=== PATIENT | male | born 1975 | race Caucasian/White ===

== ENCOUNTER → 2016-11-10 | Outpatient (CLI) | payer BC, OTHER ==
[~2016-11-10] MED LIST: ADVIN25/60 INH; CETI10TA84 PO; FLUT0.15 NAE; MONT1TAB3 PO; NXM/40 PO; VNTHFA/IN INH
== END | disposition home or self-care (01) ==
LOC: C.RDSM 08:38
PROVIDERS: ATTEND Physical Medicine & Rehabilitation Sports Medicine
DX: M25.511 Pain in right shoulder (principal)

== ENCOUNTER → 2017-04-21 | Day surgery (SDC) | payer BC ==
[2017-03-27 11:13] VITALS: Ht 180.3 cm; Wt 79.5 kg
[~2017-04-21] VITALS: Ht 180.3 cm; Wt 79.5 kg
[~2017-04-21] MED LIST changes: +ATROPINE SULFATE 0.1 MG/ML 5ML SYR IV PRN; +CEFAZOLIN 2000MG IV PUSH 10 ML IV SCH; +DEXAMETHASONE SOD INJ 4 MG/ML VIAL ONE; +EpHEDrine SULFATE INJ 50 MG/ML AMP IV PRN; +FENTANYL CITRATE INJ 50 MCG/1 ML 2 ML VIAL IV PRN; +FENTANYL CITRATE INJ 50 MCG/1 ML 2 ML VIAL ONE; +LACTATED RINGER'S 1000ML 1,000 ML IV SCH; +LEVOFLOXACIN 500 MG TAB ONE; +LEVOFLOXACIN 500 MG TAB PO ONE; +LIDOCAINE HCL 2% 2 ML VIAL (20MG/ML) ONE; +MIDAZOLAM HCL 1 MG/ML 2ML VIAL ONE; +ONDANSETRON INJ 2 MG/ML 2 ML VIAL IV PRN; +ONDANSETRON INJ 2 MG/ML 2 ML VIAL ONE; +OXYCODONE/ACETAMINOPHEN 5-325 TAB PO PRN; +PROPOFOL IV EMULSION 10 MG/ML 20 ML VIAL IV ONE; +ROPIVACAINE 0.5% 5 MG/ML 30 ML VIAL ONE; +SODIUM CHLORIDE 0.9% 1000ML 1,000 ML IV SCH
--- NOTE | 2017-04-21 10:22 | History & Physical Bridge Note ---
H&P Re-Evaluation Bridge Note: I have examined the patient, reviewed the History & Physical and in the interval since the performance of the History & Physical I have noted the following changes of clinical significance: consent obtained and reviewed.No changes noted
--- NOTE | 2017-04-21 10:24 | Discharge Instructions ---
Discharge Instructions Date of Service Apr 21, 2017. Visit Reason for Visit: Right Shoulder Impingement With Humeral Deformity Discharge Discharge Diagnosis / Problem: same Discharge Goals Goal(s): Decrease discomfort, Improve function Medications Stopped Medications Name(s): na Restart Stopped Medication(s): use all scripts as directed Activity Recommendations Activity Limitations: as noted below Lifting Limitations: until after follow-up appointment Exercise/Sports Limitations: until after follow-up appointment May Resume Sexual Activity: when tolerated Shower/Bathe: keep incision dry Anesthesia . Post Anesthesia Instructions: If you have had General Anesthesia or IV Sedation: * Do not drive today. * Resume driving when surgeon permits. * Do not make important decisions or sign legal documents today. * Call surgeon for: 1. Temperature elevations greater than 101 degrees F. 2. Uncontrollable pain. 3. Excessive bleeding. 4. Persistent nausea and vomiting. 5. Medication intolerance (nausea, vomiting or rash). * For nausea and vomiting use only clear liquids such as: tea, soda, bouillon until nausea subsides, then gradually increase diet as tolerated. * If you have any concerns or questions, call your surgeon's office. If physician is unavailable and it is an emergency, call 911 or go to the nearest emergency room. . Instructions / Follow-Up Instructions / Follow-Up The following are instructions to follow after "Shoulder Surgery" including, Acromioplasty, Rotator Cuff Repair and Instability Surgery ACTIVITY RECOMMENDATIONS: * Minimize activity after surgery. * No excessive walking, jogging, sports or laboring. * Return to activity is individualized depending on the patient and type of surgery. * Driving is not permitted until at least your first post operative visit. Please ask your doctor when it is safe to resume driving. * Expect increased discomfort with increased activity. Continue to ice the shoulder as needed. SCHOOL/WORK RECOMMENDATIONS: * You may return to sedentary work or school when you are feeling more comfortable. This is usually 3-7 days after surgery. MEDICATIONS: * You will have a prescription for pain medication and an anti-inflammatory medication after surgery. * Use the pain medication for severe pain and the anti-inflammatory for less severe pain. Once the pain medication has run out, try to use the anti-inflammatory medication. If this is not effective, contact the office for assistance. * The pain medication may cause nausea, constipation and drowsiness. You should see how they affect you before driving or similar activity. * The anti-inflammatory medication may cause stomach upset and bleeding. If this occurs let your doctor know immediately . * Take a stool softener like Colace or a laxative like Senokot to prevent constipation. DIET: * Resume previous diet. SPECIAL CARE: ICE: You have the option of an ice cooler, gel packs or ice bags. * If you have an ice cooler, refer to the instructions for that device. The ice cooler may be used continuously. * If you do not have an ice cooler, you will need to use ice bags or gel packs. Do not apply ice directly to the skin. Use a thin dressing or eun shirt between the skin and ice bag. Apply ice for 20-30 minutes and repeat every 2-4 hours. This is especially important for the first 7-10 days after surgery. Once the pain improves, use ice as needed. ELEVATION: * You may be more comfortable sleeping in an upright position. Use the sling to elevate your arm. DRESSING: * Your dressing will be changed at your first therapy appointment approximately 4-5 days after surgery. Band-aids, tape strips or gauze may be applied. You may then change your dressing daily. * Reapply dressing followed by the EBIce cooling pad (if chosen) and then the sling. * Always wash your hands prior to touching the incision area. * Once the stitches are removed, you may leave the wound open to air or cover with gauze. * Expect some bloody drainage for the first few days after surgery. * Leave the tape strips, if present, in place for 5-7 days. * Band-aids and gauze may be changed daily. * There may be a gauze pad in your armpit area. This can be changed daily or replaced by a dry washcloth. SLING/BRACE: * You will need to use a sling or brace after surgery. The length of time the sling is used is dependent upon the type of surgery performed. * Arthroscopic Acromioplasty requires use of the sling for 2-4 weeks for comfort. * Labral procedures and Rotator Cuff Repairs require use of the sling for a longer period of time. Please check with your doctor prior to discontinuing the sling. BATHING: * You may shower or sponge-bathe immediately after surgery. The post operative shoulder dressing is mostly water-tight. You may shower right over this dressing, but be reasonably careful not to get the gauze or incision wet. * Once the dressing has been changed on the fourth or fifth day after surgery, you may shower and get the incision wet. * Wash with regular soap and water. * Do not bathe (submerge the incision), soak, swim or use a hot tub until the incision is completely healed over with normal skin and the doctor has given the OK to proceed. * There is no need to apply any ointments, powders or salves to your incision. * Do not apply alcohol or hydrogen peroxide directly to the incision. * Diluted peroxide (50:50 mixture with sterile saline) may be used to clean dried blood from around the incision area. THERAPY: * You will begin therapy four or five days after surgery. * Organized therapy with the therapist is important for the first 2-4 months after surgery depending on the type of procedure. During that time you will attend therapy 1-3 times per week. * You will also need to do daily exercises for range of motion and strength as instructed. * Patients who have a Capsular Shift Procedure will need to abide by temporary range of motion limitations. * Patients having Rotator Cuff Surgery are not allowed to actively lift their arms until 4-6 weeks after surgery. * Please check with your doctor regarding appropriate motion restrictions. FOLLOW UP VISIT: * If not already scheduled, please call the office at to schedule a follow-up appointment for 10 days after surgery and monthly thereafter. Diet Recommendations Recommended Home Diet: resume previous diet Procedures Procedures Performed: see op note Pending Studies Studies pending at discharge: no Medical Emergencies . Who to Call and When: Medical Emergencies: If at any time you feel your situation is an emergency, please call 911 immediately. . Non-Emergent Contact Non-Emergency issues call your: Specialist Call Non-Emergent contact if: you have a fever, temperature is above 101.5, wound has increased drainage, wound has increased redness, wound has increased pain . . "Provider Documentation" section prepared by Brandon Parks. .
--- NOTE | 2017-04-21 12:38 | [facility] Post Operative Brief Note ---
Immediate Operative Summary Operative Date Apr 21, 2017. Pre-Operative Diagnosis Right Shoulder Impingement with Humeral Deformity Post-Operative Diagnosis Same Procedure(s) Performed Right Shoulder Open Osteotomy Right Humerus With Rotator Cuff Repair, Subacromial Decompression, Distal Clavicle Excision Surgeon Dr. Rex Parks Field Cane Scale Clerk Surgeon(s) Pricilla Schmidt PA-C Estimated Blood Loss 25 CC Findings see op note Fluids (cc crystalloids) 1000cc Specimens None Drains none Anesthesia LMA/block Complication(s) None Disposition Recovery Room / PACU
[2017-04-21 13:31] VITALS: TEMP 36.4
--- NOTE | 2017-04-21 13:31 | OPERATIVE REPORT ---
DATE OF OPERATION: 04/21/2017 PREOPERATIVE DIAGNOSIS: Post proximal humerus fracture deformity with rotator cuff impingement. POSTOPERATIVE DIAGNOSIS: Same. OPERATION PERFORMED: 1. Arthrotomy, right shoulder with open osteotomy correction of deformity of the right proximal humerus with rotator cuff repair SpeedBridge technique. 2. Excision distal clavicle. 3. Subacromial decompression. SURGEON: Dr. Parks. FISH FARM LABORER: German Cullen PA-C. No resident or fellow available. PERIOPERATIVE SITUATION: Medically cleared male with intractable shoulder symptoms with physical exam, x-ray and MRI scan consistent with post proximal humerus fracture deformity and secondary impingement from tuberosity malunion. OPERATION AND FINDINGS: OPERATION: The patient appropriately identified, site verified, consent verified, 2 grams of Ancef confirmed as being given. The right upper extremity was examined revealing a slight limitation of external and internal rotation, forward flexion near full extension, has abduction to about 95-100 degrees. He was then carefully placed in a beach chair position and right upper extremity prepped and draped in usual routine fashion. Prior to prepping fluoroscopy was used to identify the most prominent part of the tuberosity. This was in neutral position. An oblique incision was then made based over the shoulder. Full thickness flaps raised, deltotrapezial interval opened, periosteal flaps raised and the distal clavicle about 3/4 cm area excised. The undersurface of the acromion was flattened and exuberant bursectomy was performed. The deformity was visible through the tendon. This was then identified with needle localization fluoroscopy and then the tendon then subperiosteally lifted off the deformity and all the bone removed. This was verified by fluoroscopy. Using SpeedBridge technique, 2 anchors were placed medially and 2 laterally and then the tendon repaired down to bone and raw surface. An excellent repair was obtained. The arm could be placed through passive range of motion with no problems. The wound was irrigated multiple times during the procedure and then the procedure then terminated. All instruments and fluid removed. The deltotrapezial interval repaired with 0 Ethibond through the bone, #1 Vicryl and this achieved excellent repair. Two sutures were placed to bone with the Ethibond. The wound was irrigated one final time and then closed with #2 plain and running subcuticular 2-0 Prolene. A dressing applied. The patient transferred to recovery room in satisfactory condition having tolerated the procedure well. Estimated blood loss 25 mL. Crystalloid was roughly a liter. No DVT prophylaxis required. SUMMARY OF IMPLANTS: SpeedBridge sutures and 4 anchors all 475. I attest to the content of the Intraoperative Record and any orders documented therein. Any exception s are noted below.
--- NOTE | 2017-04-21 13:32 | [facility] Operative Report ---
Operative Report Operative Date Apr 21, 2017. Pre-Operative Diagnosis Right Shoulder Impingement with Humeral Deformity Post-Operative Diagnosis Same Procedure(s) Performed Right Shoulder Open Osteotomy Right Humerus With Rotator Cuff Repair, Subacromial Decompression, Distal Clavicle Excision Surgeon Dr. Rex Parks Java Engineer Surgeon(s) Pricilla Schmidt PA-C Estimated Blood Loss 25 CC Findings Right shoulder impingement, proximal humeral deformity, and rotator cuff tear Fluids (cc crystalloids) 1000cc Specimens None Drains none Complication(s) None Disposition Recovery Room / PACU Indications This 41-year-old white male presented the office with complaints of intractable right shoulder pain. He had been seen elsewhere and received surgical intervention without improvement in his symptoms. He had tried conservative care measures as well. Patient elected to proceed with surgical intervention after being educated about potential risks and outcomes. Preoperative imaging was obtained. Description of Procedure Patient was administered a regional block and then taken to the operating room where he was given general anesthesia. He was prepped and draped in usual sterile fashion. Please see Dr. Parks's operative report for specifics of the procedure. I was present for the entire case from initial patient positioning through final wound closure. Assistance was provided in patient positioning, tissue traction, hemostasis, hardware placement, and final wound closure. Patient was taken to the recovery room in satisfactory condition. I attest to the content of the Intraoperative Record and any orders documented therein. Any exceptions are noted below.
--- NOTE | 2017-04-21 13:35 | Anesthesia Progress Nt - [facility] ---
Anesthesia Post Op Note Date & Time Apr 21, 2017 at 13:34 Vital Signs Pain Intensity: 0 Vital Signs Past 12 Hours Date Time Temp Pulse Resp B/P (MAP) Pulse Ox O2 Delivery O2 Flow Rate FiO2 04/21/17 13:20 36.4 80 16 130/80 96 Room Air 04/21/17 13:16 139/97 04/21/17 13:13 87 25 98 04/21/17 13:13 88 25 04/21/17 13:12 82 22 04/21/17 13:12 83 22 130/96 100 04/21/17 13:12 83 22 130/96 100 04/21/17 13:12 82 22 04/21/17 13:08 123/91 04/21/17 13:08 123/91 04/21/17 13:07 80 17 04/21/17 13:07 80 17 04/21/17 13:07 79 17 96 04/21/17 13:07 79 17 96 04/21/17 13:02 83 17 100 04/21/17 13:02 83 17 100 04/21/17 13:02 83 17 04/21/17 13:02 83 17 04/21/17 13:01 142/86 04/21/17 13:01 142/86 04/21/17 12:59 120/87 04/21/17 12:59 120/87 04/21/17 12:57 82 21 149/132 88 04/21/17 12:57 83 21 04/21/17 12:57 83 21 04/21/17 12:57 82 21 149/132 88 04/21/17 12:52 76 18 04/21/17 12:52 77 18 100 04/21/17 12:52 77 18 100 04/21/17 12:52 76 18 04/21/17 12:51 75 17 04/21/17 12:51 76 17 119/81 04/21/17 12:47 118/86 04/21/17 12:46 79 15 04/21/17 12:46 81 15 89 04/21/17 12:46 36.0 81 16 118/86 97 Mask 8 04/21/17 10:59 0 04/21/17 10:56 130/89 04/21/17 10:54 87 04/21/17 10:54 89 8 97 04/21/17 10:49 92 04/21/17 10:49 89 6 153/106 98 04/21/17 10:48 86 16 153/106 (122) 98 Mask 6 04/21/17 10:30 36.4 88 22 138/89 (105) 95 Room Air Notes Mental Status: alert / awake / arousable, participated in evaluation Pt Amnestic to Procedure: Yes Nausea / Vomiting: adequately controlled Pain: adequately controlled Airway Patency, RR, SpO2: stable & adequate BP & HR: stable & adequate Hydration State: stable & adequate Anesthetic Complications: no major complications apparent
[2017-04-21 14:05] VITALS: BP 129/82; PULSE 86; O2SAT 95
== END | disposition home or self-care (01) ==
LOC: X.SURG 09:45
PROVIDERS: ATTEND Physical Medicine & Rehabilitation Sports Medicine
DX: M21.821 Other specified acquired deformities of right upper arm (principal); M75.41 Impingement syndrome of right shoulder; K21.9 Gastro-esophageal reflux disease without esophagitis; J45.909 Unspecified asthma, uncomplicated; Z79.899 Other long term (current) drug therapy

== ENCOUNTER → 2017-06-01 | Outpatient (CLI) | payer BC ==
[~2017-06-01] MED LIST changes: -ATROPINE SULFATE 0.1 MG/ML 5ML SYR IV PRN; -CEFAZOLIN 2000MG IV PUSH 10 ML IV SCH; -DEXAMETHASONE SOD INJ 4 MG/ML VIAL ONE; -EpHEDrine SULFATE INJ 50 MG/ML AMP IV PRN; -FENTANYL CITRATE INJ 50 MCG/1 ML 2 ML VIAL IV PRN; -FENTANYL CITRATE INJ 50 MCG/1 ML 2 ML VIAL ONE; -LACTATED RINGER'S 1000ML 1,000 ML IV SCH; -LEVOFLOXACIN 500 MG TAB ONE; -LEVOFLOXACIN 500 MG TAB PO ONE; -LIDOCAINE HCL 2% 2 ML VIAL (20MG/ML) ONE; -MIDAZOLAM HCL 1 MG/ML 2ML VIAL ONE; -ONDANSETRON INJ 2 MG/ML 2 ML VIAL IV PRN; -ONDANSETRON INJ 2 MG/ML 2 ML VIAL ONE; -OXYCODONE/ACETAMINOPHEN 5-325 TAB PO PRN; -PROPOFOL IV EMULSION 10 MG/ML 20 ML VIAL IV ONE; -ROPIVACAINE 0.5% 5 MG/ML 30 ML VIAL ONE; -SODIUM CHLORIDE 0.9% 1000ML 1,000 ML IV SCH
== END | disposition home or self-care (01) ==
LOC: C.RDSM 11:12
PROVIDERS: ATTEND Physical Medicine & Rehabilitation Sports Medicine
DX: M75.41 Impingement syndrome of right shoulder (principal)

== ENCOUNTER → 2017-08-24 | Outpatient (CLI) | payer BC | END | disposition home or self-care (01) | LOC: C.RDSM 13:50 | PROVIDERS: ATTEND Physical Medicine & Rehabilitation Sports Medicine | DX: S42.201A Unspecified fracture of upper end of right humerus, initial encounter for closed fracture (principal); X58.XXXA Exposure to other specified factors, initial encounter; M75.41 Impingement syndrome of right shoulder ==

== ENCOUNTER 2020-07-04 05:01 | Observation (INO) ==
--- NOTE | 2020-06-05 11:24 | PAT Medication Instructions ---
Medication Instructions Date of Service June 05, 2020 Home Medications albuterol sulfate 2 puff INHALATION 6XD PRN cetirizine 10 mg PO QAM esomeprazole magnesium [Nexium] 40 mg PO QAM fluticasone propion-salmeterol [Advair Diskus] 1 inh INHALATION BID ibuprofen 600 mg PO Q6H PRN montelukast 10 mg PO QAM ASK your surgeon for instructions ibuprofen 600 mg PO Q6H PRN DO NOT take the morning of surgery cetirizine 10 mg PO QAM montelukast 10 mg PO QAM Take morning of surgery With a small sip of water, OTHERWISE NOTHING TO EAT OR DRINK AFTER MIDNIGHT: albuterol sulfate 2 puff INHALATION 6XD PRN (use if needed; please bring with you to hospital day of surgery if possible) esomeprazole magnesium [Nexium] 40 mg PO QAM fluticasone propion-salmeterol [Advair Diskus] 1 inh INHALATION BID Take evening before surgery albuterol sulfate 2 puff INHALATION 6XD PRN (if needed) fluticasone propion-salmeterol [Advair Diskus] 1 inh INHALATION BID Other Notes If you have any questions please call us at [phone] or [phone] or [phone] or [phone]
--- NOTE | 2020-06-11 13:36 | Anesthesiology Consultation ---
Date of Service June 11, 2020 Assessment & Plan (1) Encounter for pre-operative examination: Chart Review Chart Review: Acceptable Risk for Surgery (pending preop Covid testing ) and Patient NOT seen in Pre Admission Testing Per nursing assessment 05/16/20, patient resides in [facility]. Works in [employer] at [employer]. Pt does have occ contact with prisoners- ill prisoners to get rapid tested. Wears mask and socially distances. No current Covid related symptoms. Pt scheduled for preop Covid testing 06/27/19 with PCP (pt aware that Covid test needs to be PCR send out test)= will await results. 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 Pt does wear PPE while working and in public. Will leave to anesthesiologist discretion AM of surgery if further PPE and/or surgery time needed. History Surgery Operation Date: 07/04/20 07:15 Proposed Procedures p Left Total Hip Arthroplasty with Dual Mobility Cup - Brandon Parks MD Height/Weight Height: 5 ft 11 in Weight: 86.183 kg Allergies Allergy/AdvReac Type Severity Reaction Status Date / Time latex Allergy Mild EYES ITCHY Verified 05/16/20 14:12 Penicillins Allergy Unknown TOLD A Verified 05/16/20 14:11 CHILD/UNKNOWN PEANUTS Allergy Severe ANAPHYLAXIS Uncoded 05/16/20 14:11 Medications Home Medications Medication Instructions Recorded Confirmed Last Taken albuterol sulfate 2 puff INHALATION 6XD PRN 05/16/20 05/16/20 Unknown cetirizine 10 mg PO QAM 05/16/20 05/16/20 Unknown esomeprazole magnesium [Nexium] 40 mg PO QAM 05/16/20 05/16/20 Unknown fluticasone propion-salmeterol 1 inh INHALATION BID 05/16/20 05/16/20 Unknown [Advair Diskus] ibuprofen 600 mg PO Q6H PRN 05/16/20 05/16/20 Unknown montelukast 10 mg PO QAM 05/16/20 05/16/20 Unknown Past Medical History Medical History Asthma AVN of femur LEFT GERD (gastroesophageal reflux disease) Migraine HX Past Family History Family History Father Family history of diabetes mellitus Grandfather (Paternal) Family history of esophageal cancer Past Surgical History Surgical History History of esophagogastroduodenoscopy (EGD) WITH DILATION History of repair of rotator cuff RIGHT-2017 Social History Smoking Status: Light tobacco smoker tobacco type: cigars Smoking cigarettes per day: OCC CIGAR Do You Dip or Chew Tobacco: Yes (1 CAN PER WEEK) Hx Alcohol Use: Yes Alcohol type: beer alcohol intake frequency: a few times a week Hx Substance Use: No Testing Laboratory Results Laboratory Tests 06/07/20 06/07/20 06/07/20 16:52 16:52 16:52 WBC 6.97 Hgb 16.6 Hct 48.6 Plt Count 250 PT 10.1 INR 1.0 APTT 28.0 Sodium 139 Potassium 3.7 Chloride 107 Carbon Dioxide 25 BUN 8 Creatinine 1.10 Glucose 88 06/07/20= T&S: O positive, antibody negative Chest X-Ray Date: 06/07/20 Findings: + NAD
--- NOTE | 2020-06-17 19:11 | History & Physical Report ---
Date of Service June 17, 2020 Assessment & Plan (1) Avascular necrosis of bone of left hip: Preoperative lab work, EKG, and chest x-ray have been ordered. Medical clearance was requested from his PCP, Dr. Hylton. Preoperative COVID-19 testing will be obtained one week prior to surgery. He is aware of the risks of COVID-19 associated with surgery. He is currently asymptomatic of any COVID-19 symptoms. PDMP was checked, and there are no concerning findings. 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 The patient already has access to a walker. Post op prescriptions will be provided at discharge from the hospital. Though he may have a penicillin allergy, he has taken Keflex before without issue. History of Present Illness Chief Complaint: Left hip pain Primary Care Provider: NO PCP This 44-year-old white male presents today for left hip pain for over 2 years. He is scheduled to undergo a left total hip arthroplasty with dual mobility cup on 07/04/2020. No specific injury. Insidious onset. He was found to have AVN on imaging. Symptoms were initially controlled with intra-articular cortisone injections and activity modification. He states they are no longer helping, and he is now having constant pain. Worse with activity. It is affecting his ADLs. Worse with weightbearing. It occasional interrupts his sleep. He has a history of steroid use for asthma. His last radiographic imaging was March 2020. Denies any numbness or tingling. Allergies Allergy/AdvReac Type Severity Reaction Status Date / Time latex Allergy Mild EYES ITCHY Verified 05/16/20 14:12 Penicillins Allergy Unknown TOLD A Verified 05/16/20 14:11 CHILD/UNKNOWN PEANUTS Allergy Severe ANAPHYLAXIS Uncoded 05/16/20 14:11 Home Medications Medication Instructions Recorded Confirmed Type albuterol sulfate 2 puff INHALATION 6XD PRN 05/16/20 05/16/20 History cetirizine 10 mg PO QAM 05/16/20 05/16/20 History esomeprazole magnesium [Nexium] 40 mg PO QAM 05/16/20 05/16/20 History fluticasone propion-salmeterol 1 inh INHALATION BID 05/16/20 05/16/20 History [Advair Diskus] ibuprofen 600 mg PO Q6H PRN 05/16/20 05/16/20 History montelukast 10 mg PO QAM 05/16/20 05/16/20 History Past Med/Surg History Medical History Asthma AVN of femur LEFT GERD (gastroesophageal reflux disease) Migraine HX Surgical History History of esophagogastroduodenoscopy (EGD) WITH DILATION History of repair of rotator cuff RIGHT-2017 Family History Father Family history of diabetes mellitus Grandfather (Paternal) Family history of esophageal cancer Social History (Updated 06/17/20 @ 19:05 by German Cullen PA-C) Smoking Status: Light tobacco smoker Cigarettes Per Day: OCC CIGAR; Second Hand Exposure: Yes (PARENTS SMOKED); Hx Alcohol Use: Yes Alcohol type: beer Hx Substance Use: No Preferred Language: Malaysian Communication Ability: Effective Inspector Salvage Required: No Beliefs That Will Affect Care: None Current Living Situation: Spouse current occupational status: employed current occupation: immigration guard Feels Safe at Home: Yes Assistive Devices: Glasses Review of Systems Review of Systems: All systems reviewed & are unremarkable except as noted in HPI & below A total of 10 systems were reviewed. Physical Exam Physical Exam: Vitals: Height 179.5 cm, weight 91 kilograms, BP 150/90, pulse 103, temperature 36.7 oral. O2 sat 97% on room air. General: Well-developed, well-nourished middle-aged white male in no acute distress. Sitting in a chair. Alert and oriented. Skin: Warm and dry with good turgor. No rashes or lesions. No ecchymosis or erythema. HEENT: Normocephalic, atraumatic. Eyes: PERRLA, EOMI. Nares and oropharynx exams deferred due to COVID precautions. By history, he has poor dentition. Heart: RRR, no MGR. Lungs: Clear to auscultation bilaterally, no crackles, rhonchi or wheezing, good air movement. Abdomen: Bowel sounds present x4, soft, nontender. No organomegaly. No masses. Musculoskeletal: Left hip evaluation shows no obvious asymmetry or deformity. There is hip flexion to around 100 degrees before onset of anterior discomfort. External rotation to 35 degrees with the hip flexed at 90. Internal rotation is significantly limited to around 10 degrees before onset of pain. No pain with palpation over his IT band or greater trochanter. There is also discomfort with palpation over the left SI joint. He ambulates with a slightly antalgic gait. Neurologic: Gross sensation is intact across the lower extremities by soft touch. Peripheral pulses are 2+. Results & Data Results & Data ([facility]) Diagnostic Findings Radiographic imaging previously obtained shows minor osteophyte formation. AVN with slight collapse is present.
[2020-07-04] MEDS ORDERED: LR 60ML/HR IV SCH (06:00)
[2020-07-04] MEDS ORDERED: TRANEXAMIC ACID 1,000 MG **IV Pre-op IV SCH (06:00)
[2020-07-04] MEDS ORDERED: ceFAZolin 2000MG 2,000 MG/15 ML SYR IV SCH (06:00)
[2020-07-04] MEDS ORDERED: ROPIVACAINE 0.5% HCL/PF 150 MG, BUPIVACAINE 0.75% MPF 20 ML, EPINEPHrine 0.15 MG, Ketor... INFIL SCH (06:00)
[2020-07-04] MEDS ORDERED: LR 500ML BOLUS, THEN 15ML/HR IV SCH (06:00)
[2020-07-04] MEDS ORDERED: GLYCOPYRROLATE 0.2 MG/ML VIAL ONE (06:13)
[2020-07-04] MEDS ORDERED: ONDANSETRON INJ 2 MG/ML 2 ML VIAL ONE (06:13)
[2020-07-04] MEDS ORDERED: LIDOCAINE 2% 2 ML VIAL/AMP(20MG/ML) INFIL ONE (06:13)
[2020-07-04] MEDS ORDERED: PROPOFOL IV EMULSION 10 MG/ML 20 ML VIAL IV ONE ×4 (06:13→08:26)
[2020-07-04] MEDS ORDERED: DEXAMETHASONE SOD INJ 4 MG/ML VIAL ONE (06:13)
[2020-07-04] MEDS ORDERED: MIDAZOLAM HCL 1 MG/ML 2ML VIAL ONE (06:14)
[2020-07-04] MEDS ORDERED: KETAMINE 50 MG/5 ML SYRINGE ONE (06:14)
[2020-07-04] MEDS ORDERED: KETOROLAC 30 MG/ML VIAL ONE (06:14)
[2020-07-04] MEDS ORDERED: BUPIVACAINE 0.5 % 5 MG/1 ML PF 10ML VIAL ONE (06:28)
--- NOTE | 2020-07-04 06:33 | History & Physical Bridge Note ---
Date of Service July 04, 2020 History & Physical Bridge Note I have examined the patient, reviewed the History & Physical and in the interval since the performance of the History & Physical I have noted the following changes of clinical significance: consent obtained/site verified/covid screen negative.no changes noted
[2020-07-04] MEDS ORDERED: ORTHO JOINT ANESTHETIC ONE (06:43)
[2020-07-04] MEDS ORDERED: ePHEDrine sulfate 50 MG/ML AMP IV PRN (06:46)
[2020-07-04] MEDS ORDERED: ATROPINE SULFATE 0.1 MG/ML 10ML SYR IV PRN (06:46)
[2020-07-04] MEDS ORDERED: ONDANSETRON INJ 2 MG/ML 2 ML VIAL IV PRN ×2 (06:46→09:51)
[2020-07-04] MEDS ORDERED: fentaNYL citrate 100 MCG/2 ML VIAL IV PRN (06:46)
[2020-07-04] MEDS ORDERED: fentaNYL citrate 100 MCG/2 ML VIAL ONE (06:58)
--- NOTE | 2020-07-04 08:48 | Post Operative Brief Note ---
Immediate Post Op Note v1 Date of Surgery July 04, 2020 Pre & Post Diagnosis Operation Date: 07/04/20 07:00 Pre-Op Diagnosis: Avascular necrosis of bone of left hip Post-Op Diagnosis: Avascular necrosis of bone of left hip I identified the patient and participated in the time-out.: Yes Procedure Operation Date: 07/04/20 07:00 Actual Procedures p Left Total Hip Arthroplasty with Dual Mobility Cup - uncemented(Left) - Brandon Parks MD Surgeon Brandon Parks MD Scientific Artist garfield/cammie Estimated Blood Loss 175 Findings Consistent with Post-Op Diagnosis
--- NOTE | 2020-07-04 08:55 | Operative Report ---
Post Operative Report Pre & Post Diagnosis Operation Date: 07/04/20 07:00 Pre-Op Diagnosis: Avascular necrosis of bone of left hip Post-Op Diagnosis: Avascular necrosis of bone of left hip I identified the patient and participated in the time-out.: Yes Procedure Operation Date: 07/04/20 07:00 Actual Procedures p Left Total Hip Arthroplasty with Dual Mobility Cup - uncemented(Left) - Brandon Parks MD Surgeon MJ Parks MD Nuclear Weapons Specialist garfield/cammie MOLINA Estimated Blood Loss 175 Findings Consistent with Post-Op Diagnosis Specimens see operative report Drains none Complications none Disposition Accompanied Patient To Recovery: Yes Disposition: Recovery Room Indications This 45-year-old white male presented to the office with complaints of persisting left hip pain. He tried conservative care measures without improvement. Radiographic imaging found evidence of AVN. He elected to proceed with surgical intervention after being educated about potential risks and outcomes. Description of Procedure Patient was administered a spinal anesthetic and then taken to the operating room where he was given sedation. He was prepped and draped in the usual sterile fashion. Please see Dr. Parks's operative report for specifics of the procedure. I was present for the entire case from initial patient positioning through final wound closure. Assistance was provided in tissue retraction, hemostasis, trial implant placement, final implant placement, and final wound closure. Patient was taken to the recovery room in satisfactory condition. I attest to the content of the Intraoperative Record and any orders documented therein. Any exceptions are noted below.
--- NOTE | 2020-07-04 08:57 | Operative Report ---
Post Operative Report Pre & Post Diagnosis Operation Date: 07/04/20 07:00 Pre-Op Diagnosis: Avascular necrosis of bone of left hip Post-Op Diagnosis: Avascular necrosis of bone of left hip I identified the patient and participated in the time-out.: Yes Procedure Operation Date: 07/04/20 07:00 Actual Procedures p Left Total Hip Arthroplasty with Dual Mobility Cup - uncemented(Left) - Brandon Parks MD Surgeon Brandon Parks MD Applications Project Manager garfield/cammie MOLINA Estimated Blood Loss 175 Findings Consistent with Post-Op Diagnosis Specimens femoral head Anesthesia Type Spinal Complications none Disposition Accompanied Patient To Recovery: Yes Disposition: Recovery Room Description of Procedure As per Dr. Parks's note, I assisted in prepping and draping, instruments handling, certain parts of the procedure and wound closure. I attest to the content of the Intraoperative Record and any orders documented therein. Any exceptions are noted below.
--- NOTE | 2020-07-04 09:17 | Anesthesiology Progress Note ---
Date of Service July 04, 2020 Anesthesia Post Procedure Vital Signs Vital Signs: Temp Pulse Pulse Resp BP Pulse Ox 07/04/20 09:00 92 H 14 126/91 95 07/04/20 08:54 36.3 C L 95 H 17 122/88 95 07/04/20 05:27 36.6 C 94 H 16 135/102 H 95 Pain Intensity Left Hip: Pain Intensity: 2 Transfer of Care Handoff Completed per policy Notes Mental Status: alert / awake / arousable and participated in evaluation Nausea / Vomiting: adequately controlled Pain: adequately controlled Airway Patency, RR, SpO2: stable & adequate BP & HR: stable & adequate Hydration State: stable & adequate Neuraxial Anesthesia: was administered and sensory block is resolving Anesthetic Complications: no major complications apparent and Pt Satisfied with anesthetic care
--- NOTE | 2020-07-04 09:21 | XRay Report ---
SINGLE VIEW PELVIS CLINICAL HISTORY: Postoperative examination. FINDINGS: An AP portable view of the pelvis is compared to study dated 04/09/2020. A bipolar left hip arthroplasty is in near-anatomic alignment. 2 cortical lag screws transfix the acetabular cup. No ac theresa fracture is identified. There are expected postoperative changes overlying the left hip including skin clips, subcutaneous gas, and soft tissue swelling. The joint space of the right hip is normal. The sacroiliac joints are maintained. IMPRESSION: Expected postoperative findings status post left hip arthroplasty. No acute fracture is s een. ACT 112: Negative or not required by law. Electronically signed by: James Villar M.D. 07/04/2020 9:20 AM
[2020-07-04] MEDS ORDERED: ALBUTEROL HFA 8 GM INHALER INH PRN (09:51)
[2020-07-04] MEDS ORDERED: TAMSULOSIN HCL 0.4 MG CAP PO PRN (09:51)
[2020-07-04] MEDS ORDERED: MAGNESIUM HYDROXIDE SUSP 30 ML UDC PO PRN (09:51)
[2020-07-04] MEDS ORDERED: ALUMINUM/MAGNESIUM SUSP 30 ML UDC PO PRN (09:51)
[2020-07-04] MEDS ORDERED: HYDROmorphone INJ 0.5 MG/0.5 ML SYR IV PRN (09:51)
[2020-07-04] MEDS ORDERED: bisacodyL 10 MG SUPP PR PRN (09:51)
[2020-07-04] MEDS ORDERED: METOCLOPRAMIDE HCL INJ 5 MG/ML 2 ML VIAL IV PRN (09:51)
[2020-07-04] MEDS ORDERED: NALOXONE HCL 0.4 MG/1 ML VIAL/CARP IV PRN (09:51)
[2020-07-04] MEDS ORDERED: diphenhydrAMINE 50 MG/ML VIAL IV PRN (09:51)
--- NOTE | 2020-07-04 09:57 | Operative Report (OR) ---
DATE OF OPERATION: 07/04/2020 SURGEON: Brandon Parks MD. APPLIANCE SERVICE REPRESENTATIVE: Dr. Mcfadden. SECOND APPLIANCE SERVICE REPRESENTATIVE: German Cullen PA-C.. 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 OPERATION PERFORMED: Noncemented dual mobility left total hip replacement. PERIOPERATIVE SITUATION: Medically cleared male who had been followed for years with intractable hip pain. At this point in time, wants to proceed with surgical treatment. Feels like his life is miserable, cannot sleep, cannot do a lot of activities. He understands the risks and consequences including instability and the election for dual mobility cup to help minimize that risk. Also, understands risk of infection, leg length inequality etc. PROCEDURE: Noncemented left total hip replacement with dual mobility acetabular cup. SUMMARY OF IMPLANTS: Osseous titanium cementless screw of 6.5 x 20 and 6.5 x 25 dual mobility cup system bearing D acetabular liner, dual mobility bearing D, size cup is a 50, osseous titanium cementless used G7 compatible implants, multihole cup size 50 all by [employer]. The stem is a DePuy high offset Tri-Lock size 2. The head was a 28+5 ceramic Biolox delta head. It was +5 neck length. ESTIMATED BLOOD LOSS: Roughly 175 mL crystalloid per anesthesia. Bone pathology pending on resection. Grossly, the femoral head was collapsed. DESCRIPTION OF PROCEDURE: The patient was appropriately identified, site verified, consent verified. Antibiotics confirmed as being given. The left lower extremity was prepped and draped in usual routine fashion at the patient in the right lateral decubitus position, care taken to protect all and pad all prominences. Posterior approach tape was then made. It was slightly extended once we were trying to get the cup in. Full thickness flaps were raised. IT band split, gluteus sarah fascia split, retractor placed. Care taken to protect the sciatic nerve, it was palpated not explored. He was heavy muscle. Short external rotators were released. The capsule was then T'ed, the hip was then dislocated. The ligament of teres was quite heavy. Femoral neck was then resected roughly leaving a centimeter proximal to the lesser tuberosity. The labrum was then all excised. Serial reaming carried up to a 50 and a 50 cup impacted into appropriate position and then secured with 2 additional screws, one 6.5 x 25 and one 6.5 x 20, excellent purchase on both screws. The rim compression of the cup was also excellent. Appropriate anteversion and inclination was obtained. The wound was then irrigated. Trial liner seated. The hip was then flexed and internally rotated. The proximal femur repaired with a box inspector, lateralizing rasp, serial broaching up to size 2. Trial reduction with the +5 was excellent. It was an extremely stable in all planes. The trial implant was then removed. The wound was irrigated. The permanent liner seated, the permanent head and stem seated. The hip was then reduced. It was stable in all planes. Leg lengths were excellent. Wound was then irrigated one final time and closed with #2 Vicryl for the short external rotators and hip capsule, #2 Vicryl for the gluteus sarah fascia and IT band, 2-0 plane for subcutaneous layer and stainless clips for skin. Appropriate dressing applied. The patient transferred to recovery room in satisfactory condition having tolerated the procedure well. I attest to the content of the Intraoperative Record and any orders documented therein. Any exception s are noted below.
[2020-07-04] MEDS ORDERED: SODIUM CHLORIDE 0.9% 1000ML 1,000 ML IV SCH (10:00)
[2020-07-04] MEDS ORDERED: FLUTICASONE/VILANTEROL 200/25MCG 14 PUFFS/INHALER INH ONE (10:15)
[2020-07-04] MEDS: PANTOprazole 40 MG TAB PO SCH (10:38)
[2020-07-04] MEDS: DOCUSATE SODIUM 100 MG CAP PO SCH ×2 (10:38→21:07)
[2020-07-04] MEDS: MONTELUKAST SODIUM 10 MG TABLET PO SCH (10:38)
[2020-07-04] MEDS: MULTIVITAMIN TAB PO SCH (10:38)
[2020-07-04] MEDS: KETOROLAC 30 MG/ML VIAL IV SCH ×3 (10:38→20:59)
[2020-07-04] MEDS: oxyCODONE HCL IR 5 MG TAB (IMMEDIATE RELEASE) PO PRN ×2 (11:51→18:29)
--- NOTE | 2020-07-04 12:54 | Progress Notes ---
DATE: 07/04/2020 SUBJECTIVE: Postop check status post left total hip replacement. The patient is sitting up in bed, already ate 2 meals. At this point in time, he has no nausea, vomiting, chest pain, shortness of breath, fever or chills. OBJECTIVE: Vital signs are stable. He is afebrile. Neurovascular check of femoral sciatic nerve is normal. Hip is located. Dressing is clean and dry. Postop x-rays look excellent. ASSESSMENT: Doing well status post left total hip replacement for avascular necrosis. Continue to mobilize. Hep-Lock IV. Eating well. Prepare for discharge tomorrow.
--- NOTE | 2020-07-04 13:17 | Discharge Summary (DS) ---
CHIEF COMPLAINT: Left hip pain. HISTORY OF PRESENT ILLNESS: Admitted for elective left total hip replacement for AVN. The patient's hospital course has been uneventful. Postop x-rays look excellent. Vital signs are stable. He is afebrile. Denies chest pain, shortness of breath, fever, chills, nausea, vomiting or headache. PAST MEDICAL HISTORY AND PAST SURGICAL HISTORY: Remarkable for asthma, AVN of the femur, GERD, migraine, history of EGD, history of rotator cuff repair. FAMILY HISTORY: Remarkable for diabetes mellitus in his father, esophageal cancer in his maternal grandfather. SOCIAL HISTORY: Reveals he is a light smoker, occasional cigar. He is employed as a armed security guard. REVIEW OF SYSTEMS: Noncontributory. Postop x-rays look excellent. ASSESSMENT: Doing well status post left total hip replacement. Continue with postoperative care pathway. Discharge tomorrow.
[2020-07-04] MEDS ORDERED: ORTHO WARFARIN NOMOGRAM SCH (14:00)
[2020-07-04] MEDS: ceFAZolin 2000MG 2,000 MG/15 ML SYR IV SCH ×2 (15:54→23:04)
[2020-07-04] MEDS: ACETAMINOPHEN 500 MG TAB PO SCH ×2 (15:54→20:57)
[2020-07-04] MEDS: FERROUS GLUCONATE 324 MG TAB PO SCH (15:55)
[2020-07-04] MEDS: ASCORBIC ACID 500 MG TAB PO SCH (15:56)
[2020-07-04] MEDS ORDERED: WARFARIN SOD 5 MG TAB PO ONE (16:00)
[2020-07-04] MEDS ORDERED: TRANEXAMIC ACID / 0.7% NACL 1,000 MG/100 ML BAG IV SCH (16:00)
[2020-07-04] MEDS ORDERED: SENNA 8.6 MG TAB PO SCH (21:00)
[2020-07-05] MEDS: KETOROLAC 30 MG/ML VIAL IV SCH (05:14)
[2020-07-05] MEDS: ACETAMINOPHEN 500 MG TAB PO SCH (05:14)
[2020-07-05 06:24] LABS: Basophils # (auto) 0.01 K/uL (0-0.2); Basophils % (auto) 0.1 %; Eosinophils # (auto) 0.04 K/uL (0-0.5); Eosinophils % (auto) 0.5 %; Hematocrit (blood only) 38.6 % (42-52); Hemoglobin 13.3 g/dL (14.0-18.0); Immature Granulocytes # (auto) 0.02 K/uL (0.00-0.02); Immature Granulocytes % (auto) 0.3 %; Lymphocytes # (auto) 1.89 K/uL (1.2-3.4); Lymphocytes % (auto) 25.5 %; Mean Corpuscular Hemoglobin 32.6 pg (25-34); Mean Corpuscular Hgb Conc 34.5 g/dL (32-36); Mean Corpuscular Volume 94.6 fL (80-100); Mean Platelet Volume 9.8 fL (7.4-10.4); Monocytes # (auto) 0.56 K/uL (0.11-0.59); Monocytes % (auto) 7.5 %; Neutrophils % (auto) 66.1 %; Platelet Count 255 K/uL (130-400); RDW Coefficient of Variation 12.7 % (11.5-14.5); Red Blood Count 4.08 M/uL (4.7-6.1); White Blood Count 7.42 K/uL (4.8-10.8)
[2020-07-05 07:03] LABS: BUN Creatinine Ratio 15.8 (10-20); Calcium 8.6 mg/dl (8.5-10.1); Creatinine Clr Calc Pharmacy 103.3 ml/min; Est GFR (African American) 100.5; Est GFR (Non-African American) 86.7; Potassium 3.9 mmol/L (3.5-5.1)
[2020-07-05] MEDS ORDERED: WARFARIN SOD 5 MG TAB PO ONE (07:16)
[2020-07-05] MEDS: oxyCODONE HCL IR 5 MG TAB (IMMEDIATE RELEASE) PO PRN ×2 (07:57→11:38)
[2020-07-05] MEDS: PANTOprazole 40 MG TAB PO SCH (07:58)
[2020-07-05] MEDS: ASCORBIC ACID 500 MG TAB PO SCH (07:58)
[2020-07-05] MEDS: MULTIVITAMIN TAB PO SCH (07:58)
[2020-07-05] MEDS: FERROUS GLUCONATE 324 MG TAB PO SCH (07:59)
[2020-07-05] MEDS: MONTELUKAST SODIUM 10 MG TABLET PO SCH (07:59)
[2020-07-05] MEDS: DOCUSATE SODIUM 100 MG CAP PO SCH (07:59)
[2020-07-05] MEDS ORDERED: dexAMETHasone 10 MG in SYRINGE 0 ML IV SCH (08:00)
--- NOTE | 2020-07-05 08:16 | Progress Notes ---
DATE: 07/05/2020 SUBJECTIVE: Postop day #1 status post left total hip replacement. The patient did well overnight. He denies any chest pain, shortness of breath, fever, chills, nausea, vomiting or headache. OBJECTIVE: VITAL SIGNS: Stable. He is afebrile. NEUROVASCULAR CHECK: Femoral sciatic nerve is normal. Hip is located. WOUND CLASS: Dressing clean, dry and intact. LAB WORK: Reveals hematocrit stable at 38.6. INR is 1.0. ASSESSMENT: Doing well. Discharge to home today. Coumadin before leaving. His ride is picking him up around 11 so he needs to be ready by then. LENNIE
[2020-07-05] MEDS ORDERED: CETIRIZINE HCL 10 MG TABLET PO SCH (09:00)
[2020-07-05] MEDS ORDERED: FLUTICASONE/VILANTEROL 200/25MCG 14 PUFFS/INHALER INH SCH (09:00)
--- NOTE | 2020-07-05 10:53 | Orthopedic Progress Note ---
Date of Service July 05, 2020 Assessment & Plan (1) Status post total hip replacement, left: Postsurgical dressing was changed today by me. Patient will be given prescriptions for Percocet and Coumadin. Written discharge instructions were provided. Discharge to home today after PT/OT in the hospital. Weight-bear as tolerated using his walker. Follow-up in the office in 2 weeks as scheduled for staple removal. Keep the wounds clean and dry. Dressing should remain in place until at least Thursday, and then change as needed for soiling. Admission and Anticipated Discharge Date Admission Date: July 04, 2020 Subjective He states Patient is seen in his room this morning. He is alert and conversive. Denies any significant pain. States his ride will be present around noon today for departure. He denies any chest pain, shortness of breath, nausea, or vomiting. He has been out of bed this morning. No PT or OT yet this morning. He states he had some left heel pain in the early hours this morning. This has resolved. No other complaints. Review of Systems Review of Systems: Unchanged from yesterday. Physical Exam Physical Exam: General: Well-developed, well-nourished, middle-aged white male, in no acute distress. Sitting on a bed. Alert and oriented. Skin: Warm and dry with good turgor. No rashes. Postsurgical dressing is in place. Upon removal, he has expected postoperative ecchymosis and very mild edema. No erythema. No active drainage. Elyssa are intact. Wound edges are well approximated. Musculoskeletal: Patient has supple motion of the left hip. He is able to perform a straight leg raise. He does complain of some discomfort in his hip with active motion. Intact motor function to the ankle and toes. He is able to flex his hip and his knee. Neurologic: Gross sensation is intact across the left leg by soft touch. Peripheral pulses are 2+. Results & Data ([facility]) Vital Signs (Past 12 Hours) Vital Signs Temp Pulse Pulse Resp BP BP Pulse Ox 07/05/20 10:21 36.6 C 86 78 18 124/86 133/80 95 07/05/20 07:43 36.6 C 78 18 133/80 95 07/05/20 03:29 36.7 C 82 16 119/71 94 07/04/20 23:08 36.7 C 95 H 16 138/87 94 Laboratory Results H&H this morning of 13.3 and 38.6. INR is 1.0. PRP is unremarkable.
[2020-07-05] MEDS ORDERED: WARFARIN SOD 5 MG TAB PO SCH ×2 (16:00)
== END 2020-07-05 12:34 | disposition home or self-care (01) ==
LOC: 3E 05:01 → ASU 05:01